=== PATIENT | female | born 2000 | race Caucasian/White ===

== ENCOUNTER → 2024-10-15 14:03 | Outpatient (CLI) | payer OTHER, SELFPAY ==
--- NOTE | 2024-10-15 14:04 | DI.US.S_ITS ---
PROCEDURE: US PELVIC COMPLETE INDICATIONS: PELVIC PAIN TECHNIQUE: Real-time scanning was performed of the pelvic organs, with image documentation. Additional endovaginal scanning was necessary due to incomplete visualization of the adnexal and endometrial structures by transabdominal scanning. COMPARISON: None. FINDINGS: Uterus: Uterus is anteverted and normal in size at 7.5 x 3.7 x 3.0 cm. The myometrium is homogeneous. The endometrium measures 6.6 mm combined thickness. Ovaries: The right ovary measures 0.6 x 2.6 x 1.2 cm, with a calculated ovarian volume of 4.3 cc. The left ovary measures 3.0 x 2.6 x 1.6 cm, with a calculated ovarian volume of 6.5 cc. The ovaries have a normal sonographic appearance. Greater than 12 follicles can be seen in the left ovary. No adnexal masses are seen. Other: No pathologic free abdominal or pelvic fluid. IMPRESSION: Overall relatively unremarkable exam, noting greater than 12 follicles within the left ovary. We strive to produce accurate, complete, and clear reports of imaging services. To assist us in improving patient care, this report was composed using standard report templates and voice recognition software. Therefore, it may contain abnormal punctuation, insertions and/or omissions. Occasional wrong-word or sound-alike substitutions may occur. Though we review the report and make efforts to correct it, we do recommend that the report be read carefully in proper context to recognize any text inaccuracies. Dictated by: Sheri Post M.D. on 10/16/2024 at 22:22 Approved by: Sheri Post M.D. on 10/16/2024 at 22:23
== END ==
PROVIDERS: Family Provider Family Medicine; PCP Family Medicine; Referring Provider Student in an Organized Health Care Education/Training Program; Visit Provider Student in an Organized Health Care Education/Training Program
DX: N92.6 Irregular menstruation, unspecified (principal)
CPT/HCPCS: 76830; 76856